=== PATIENT | female | born 2000 | race African-American/Black ===

== ENCOUNTER 2021-06-26 10:00 | Outpatient (CLI) | payer OTHER ==
[~2021-06-26] VITALS: Ht 154.9 cm; Wt 62.2 kg
[~2021-06-26 10:00] MED LIST: IRON SUCROSE 300 MG in NS 250 ML OVER 90 MIN. IV ONE; UNRESOLVED CLARIFICATION ENTRY XX SCH
[2021-06-26 10:10] VITALS: BP 123/56
[2021-06-26] MEDS ORDERED: MULTTAB20 PO (10:26)
[2021-06-26 12:30] VITALS: BP 114/56
[2021-06-26 13:30] VITALS: BP 112/56
[2021-06-26 14:30] VITALS: BP 118/54
== END 2021-06-26 14:30 | disposition home or self-care (01) ==
LOC: M INFU 10:00
PROVIDERS: ATTEND Nurse Practitioner Women's Health
DX: O99.013 Anemia complicating pregnancy, third trimester (principal); D50.9 Iron deficiency anemia, unspecified; Z3A.28 28 weeks gestation of pregnancy
CPT/HCPCS: 96365; 96366; J1756

== ENCOUNTER 2021-07-03 10:13 | Outpatient (CLI) | payer OTHER ==
[~2021-07-03] VITALS: Ht 154.9 cm; Wt 62.2 kg
[~2021-07-03 10:13] MED LIST changes: +MULTTAB20 PO; -UNRESOLVED CLARIFICATION ENTRY XX SCH
[2021-07-03 10:20] VITALS: BP 117/56
[2021-07-03 12:00] VITALS: BP 116/68
[2021-07-03 13:00] VITALS: BP 119/64
[2021-07-03 14:05] VITALS: BP 120/66
== END 2021-07-03 14:00 | disposition home or self-care (01) ==
LOC: M INFU 10:13
PROVIDERS: ATTEND Nurse Practitioner Women's Health
DX: O99.019 Anemia complicating pregnancy, unspecified trimester (principal); D50.9 Iron deficiency anemia, unspecified; Z3A.28 28 weeks gestation of pregnancy
CPT/HCPCS: 96365; 96366; J1756

== ENCOUNTER 2021-07-10 10:01 | Outpatient (CLI) | payer OTHER ==
[~2021-07-10] VITALS: Ht 154.9 cm; Wt 62.2 kg
[2021-07-10 10:19] VITALS: BP 123/57
[2021-07-10 10:50] VITALS: BP 119/61
[2021-07-10 12:05] VITALS: BP 122/66
== END 2021-07-10 12:20 | disposition home or self-care (01) ==
LOC: M INFU 10:01
PROVIDERS: ATTEND Nurse Practitioner Women's Health
DX: O99.013 Anemia complicating pregnancy, third trimester (principal); D50.9 Iron deficiency anemia, unspecified; Z3A.28 28 weeks gestation of pregnancy
CPT/HCPCS: 96365; 96366; J1756

== ENCOUNTER 2021-07-17 10:48 | Outpatient (CLI) | payer OTHER ==
[~2021-07-17] VITALS: Ht 154.9 cm; Wt 62.2 kg
[2021-07-17 11:00] VITALS: BP 117/60
[2021-07-17 12:30] VITALS: BP 117/64
[2021-07-17 14:20] VITALS: BP 123/66
== END 2021-07-17 14:20 | disposition home or self-care (01) ==
LOC: M INFU 10:48
PROVIDERS: ATTEND Nurse Practitioner Women's Health
DX: O99.013 Anemia complicating pregnancy, third trimester (principal); D50.9 Iron deficiency anemia, unspecified; Z3A.28 28 weeks gestation of pregnancy
CPT/HCPCS: 96365; 96366; J1756

== ENCOUNTER 2021-08-06 00:16 | Inpatient (IN) | payer OTHER ==
[~2021-08-06] VITALS: Ht 154.9 cm; Wt 63.6 kg
[2021-08-06] VITALS (22 sets, daily range): BP systolic 107–153; BP diastolic 55–96
[~2021-08-06 00:16] MED LIST changes: -IRON SUCROSE 300 MG in NS 250 ML OVER 90 MIN. IV ONE
[2021-08-06] MEDS ORDERED: LR 1,000 ML IV ONE (01:00)
[2021-08-06 01:18] LABS: HEMATOCRIT 27.9 % (36.0-47.0); MEAN CORPUSCULAR HGB CONC 32.3 g/dl (32.0-36.5); MEAN CORPUSCULAR VOLUME 86.9 fl (80.0-96.0); PLATELET COUNT, AUTOMATED 199 10^3/uL (150-450); RED BLOOD COUNT 3.21 10^6/uL (4.00-5.40); WHITE BLOOD COUNT 13.4 10^3/uL (4.0-10.0)
[2021-08-06] MEDS ORDERED: PENICILLIN G POTASSIUM IV 5 MU in D5W MINI-BAG PLUS 100 ML IV ONE (01:40)
[2021-08-06] MEDS ORDERED: METHYLERGONOVINE MALEATE 0.2 MG/ML VIAL (J2210) IM PRN (02:35)
[2021-08-06] MEDS ORDERED: OXYTOCIN DRIP 30 UNITS in IV 1 EA IV PRN (02:35)
[2021-08-06] MEDS ORDERED: OXYTOCIN INJ 10 UNITS/ML VIAL (J2590) IV PRN (02:35)
[2021-08-06] MEDS ORDERED: CARBOPROST TROMETHAMINE 250 MCG/ML AMP IM PRN (02:35)
[2021-08-06] MEDS ORDERED: OXYTOCIN DRIP 30 UNITS in IV 1 EA IV SCH ×6 (02:35→17:30)
[2021-08-06] MEDS ORDERED: LIDOCAINE 1% MDV 20ML VIAL INFIL PRN (02:35)
[2021-08-06] MEDS: LR 1,000 ML IV SCH ×2 (03:00→10:24)
[2021-08-06] MEDS ORDERED: ACETAMINOPHEN 500 MG TAB PO ONE (04:00)
[2021-08-06] MEDS: PENICILLIN G POTASSIUM IV 2.5 MU in IV 1 EA IV SCH ×3 (05:45→13:49)
[2021-08-06] MEDS ORDERED: BETAMETHASONE SOLUSPAN 6MG/ML 5ML VIAL (J0702 PER 3MG) IM SCH (10:00)
[2021-08-06] MEDS ORDERED: FENTANYL 2MCG/ML ROPIVACAINE 0.2% IN 0.9% NACL 100ML IVBAG As Ordered ONE (16:32)
[2021-08-06] MEDS ORDERED: ONDANSETRON 4MG/2ML VIAL IV PRN ×2 (17:10→17:30)
[2021-08-06] MEDS ORDERED: ePHEDrine SULFATE 25 MG/5 ML(5MG/ML) SYRINGE IV PRN (17:10)
[2021-08-06] MEDS ORDERED: LACTATED RINGER'S 1000 ML IV PRN (17:10)
[2021-08-06] MEDS ORDERED: NALOXONE INJ 0.4MG/1ML VIAL (J2310 PER 1MG) IV PRN (17:10)
[2021-08-06] MEDS ORDERED: FENTANYL/ROPIVACAINE/NACL BAG 100 ML EPIDURAL SCH (17:10)
[2021-08-06] MEDS ORDERED: EPIDURAL COMMENT XX SCH (17:10)
[2021-08-06] MEDS ORDERED: REFRIGERATOR IV KEYS XX PRN (17:10)
[2021-08-06] MEDS ORDERED: EPIDURAL/PCA KEYS XX PRN (17:10)
[2021-08-06] MEDS ORDERED: diphenhydrAMINE 50MG/ML VIAL (J1200) IV PRN (17:10)
[2021-08-06] MEDS ORDERED: METHYLERGONOVINE MALEATE 0.2 MG TAB PO PRN (17:30)
[2021-08-06] MEDS ORDERED: DIBUCAINE 1% OINTMENT 30GM TOP PRN (17:30)
[2021-08-06] MEDS ORDERED: MEASLES,MUMPS,RUBELLA VACCINE INJ (MMR-II) (90707) SC SCH (17:30)
[2021-08-06] MEDS ORDERED: ACETAMINOPHEN TAB 650MG DOSE (2X325MG) PO PRN (17:30)
[2021-08-06] MEDS ORDERED: ANUSOL HC CREAM 30GM TOP PRN (17:30)
[2021-08-06] MEDS ORDERED: ACETAMINOPHEN 500 MG TAB PO PRN (17:30)
[2021-08-06] MEDS ORDERED: RHOGAM 300 MCG (1500 IU) INJ (J2790) IM SCH (17:30)
[2021-08-06] MEDS ORDERED: IBUPROFEN 800 MG TAB PO PRN (17:30)
[2021-08-06] MEDS ORDERED: IBUPROFEN 600MG TAB PO PRN (17:30)
[2021-08-06] MEDS: DOCUSATE SODIUM 100MG CAPSULE PO SCH (21:39)
[2021-08-07 06:00] VITALS: BP 99/56
[2021-08-07] MEDS: PRENATAL VITAMINS CHEWABLE TABLET PO SCH (08:08)
[2021-08-07] MEDS: DOCUSATE SODIUM 100MG CAPSULE PO SCH ×2 (08:08→20:03)
[2021-08-07 18:00] VITALS: BP 114/75
[2021-08-08 06:00] VITALS: BP 112/62
[2021-08-08] MEDS ORDERED: IBUP-1022 PO (07:14)
[2021-08-08] MEDS ORDERED: PRENCHW PO (07:14)
[2021-08-08] MEDS ORDERED: COLA100C5 PO (07:14)
[2021-08-08] MEDS: PRENATAL VITAMINS CHEWABLE TABLET PO SCH (09:20)
[2021-08-08] MEDS: DOCUSATE SODIUM 100MG CAPSULE PO SCH (09:20)
== END 2021-08-08 16:20 | disposition home or self-care (01) | DRG 807 ==
LOC: M LDO 00:16 → M LDI 01:03 → M OBS 19:36
PROVIDERS: ADMIT Obstetrics & Gynecology; ATTEND Obstetrics & Gynecology
PROC: 10E0XZZ Delivery of Products of Conception, External Approach (ICD-10-PCS; principal; 2021-08-06)
DX: O42.013 Preterm premature rupture of membranes, onset of labor within 24 hours of rupture, third trimester (principal); Z37.0 Single live birth; Z3A.34 34 weeks gestation of pregnancy; O99.824 Streptococcus B carrier state complicating childbirth; O99.02 Anemia complicating childbirth; D64.9 Anemia, unspecified; O76 Abnormality in fetal heart rate and rhythm complicating labor and delivery